=== PATIENT | male | born 2000 | race Caucasian/White ===

== ENCOUNTER 2021-10-27 02:12 | Emergency (ER) | payer SELFPAY ==
[~2021-10-27] VITALS: Ht 185.4 cm; Wt 72.6 kg
[2021-10-27 02:20] VITALS: BP 149/79
--- NOTE | 2021-10-27 02:20 | NUR ---
TONE CHP TAKEN TO CHAIR C
--- NOTE | 2021-10-27 03:55 | NUR ---
PATIENT [facility] DEPT. PATIENT EXAMINED BY DR. FIGUEROA. PATIENT MEDICALLY CLEARED AND RELEASED IN CUSTODY IN STABLE CONDITION. ORIGINAL PRE-BOOK FORM GIVEN TO OFFICER ADAN, #[id number].
== END 2021-10-27 03:55 ==
LOC: MED 02:12
DX: Z02.89 Encounter for other administrative examinations (principal); Z88.5 Allergy status to narcotic agent; V43.52XA Car driver injured in collision with other type car in traffic accident, initial encounter; Y93.89 Activity, other specified; Y92.410 Unspecified street and highway as the place of occurrence of the external cause; Y99.8 Other external cause status
CPT/HCPCS: 99283